=== PATIENT | male | born 1965 ===

== ENCOUNTER 2018-11-18 07:50 | Day surgery (SDC) | payer BC ==
--- OUTSIDE RECORDS SUMMARY | 2018-11-18 07:53 | XMS REPORT ---
:1965 Author Organization eClinicalWorks Care Team Providers Name Role Phone Myles Rosalio Provider Role Unavailable Allergies No Known Allergies Problems Problem Type Condition Code Onset Dates Condition Status Assessment HTN, goal below 130/80 I10 Active Problem HTN, goal below 130/80 I10 Active Problem ED (erectile dysfunction) F52.21 Active Problem Adult BMI 31.0-31.9 kg/sq m Z68.31 Active Problem Controlled type 2 diabetes mellitus E11.8 Active with complication, without long-term current use of insulin Problem Type 2 diabetes mellitus with other E11.29 Active diabetic kidney complication Problem Proteinuria, unspecified R80.9 Active Medications Medication Code Code Instructions Start End Date Status Dosage System Date Amlodipine [facility] 51779144872 5 MG Orally Once Aug 18, Active 1 tablet Besylate a day [address] [facility] 95067407669 100-12.5 MG Jul 29, Active 1 tablet Potassium-HCTZ Orally Once a 2018 day Results No Known Results Summary Purpose eClinicalWorks Submission
--- OUTSIDE RECORDS SUMMARY | 2018-11-18 07:53 | XMS REPORT ---
:1965 Author Organization eClinicalWorks Care Team Providers Name Role Phone Rosalio Bueno Provider Role Unavailable Allergies, Adverse Reactions, Alerts Substance Reaction Event Type N.K.D.A. Info Not Available Non Drug Allergy Problems Problem Type Condition Code Onset Dates Condition Status Assessment Screening for colon cancer Z12.11 Active Assessment Well adult on routine health check Z00.00 Active Assessment Encounter for screening for other Z11.59 Active viral diseases Problem HTN, goal below 130/80 I10 Active Problem ED (erectile dysfunction) F52.21 Active Problem Adult BMI 31.0-31.9 kg/sq m Z68.31 Active Problem Controlled type 2 diabetes mellitus E11.8 Active with complication, without long-term current use of insulin Problem Type 2 diabetes mellitus with other E11.29 Active diabetic kidney complication Problem Proteinuria, unspecified R80.9 Active Assessment Low serum testosterone level R79.89 Active Assessment Adult BMI 31.0-31.9 kg/sq m Z68.31 Active Assessment Mixed hyperlipidemia E78.2 Active Assessment Proteinuria, unspecified R80.9 Active Assessment ED (erectile dysfunction) F52.21 Active Assessment HTN, goal below 130/80 I10 Active Assessment Type 2 diabetes mellitus with other E11.29 Active diabetic kidney complication Assessment Controlled type 2 diabetes mellitus E11.8 Active with complication, without long-term current use of insulin Medications Medication Code Code Instructions Start End Date Status Dosage System Date Metformin HCl [facility] 85061560279 500 MG Orally Active 1 tablet Twice a day with a meal Sildenafil ND 57743192778 100 MG Orally Aug 26, Sep 25, Active 1 tablet Citrate Once a day 2018 2018 as needed Amlodipine ND 86094688209 5 MG Orally Aug 18, Active 1 tablet Besylate Twice a day 2018 Losartan ND 29376994826 100-12.5 MG Active 1 tablet Potassium-HCTZ Orally Once a day Cialis [facility] 53993620239 20 MG Orally Active 1 tablet Results No Known Results Summary Purpose eClinicalWorks Submission
--- OUTSIDE RECORDS SUMMARY | 2018-11-18 07:53 | XMS REPORT ---
:1965 Author Organization eClinicalWorks Care Team Providers Name Role Phone Ron Gutierrez Provider Role Unavailable Allergies No Known Allergies Problems Problem Type Condition Code Onset Dates Condition Status Problem HTN, goal below 130/80 I10 Active Problem ED (erectile dysfunction) F52.21 Active Problem Adult BMI 31.0-31.9 kg/sq m Z68.31 Active Problem Controlled type 2 diabetes mellitus E11.8 Active with complication, without long-term current use of insulin Problem Type 2 diabetes mellitus with other E11.29 Active diabetic kidney complication Problem Proteinuria, unspecified R80.9 Active Medications No Known Medications Results No Known Results Summary Purpose [email or web address] Submission
--- OUTSIDE RECORDS SUMMARY | 2018-11-18 07:53 | XMS REPORT ---
:1965 Author Organization eClinicalWorks Care Team Providers Name Role Phone Myles Rosalio Provider Role Unavailable Allergies, Adverse Reactions, Alerts Substance Reaction Event Type N.K.D.A. Info Not Available Non Drug Allergy Problems Problem Type Condition Code Onset Dates Condition Status Assessment Mixed hyperlipidemia E78.2 Active Assessment HTN, goal below 130/80 I10 Active Assessment Proteinuria, unspecified R80.9 Active Assessment ED (erectile dysfunction) F52.21 Active Assessment Type 2 diabetes mellitus with other E11.29 Active diabetic kidney complication Problem Type 2 diabetes mellitus with other E11.29 Active diabetic kidney complication Problem Proteinuria, unspecified R80.9 Active Problem ED (erectile dysfunction) F52.21 Active Assessment Controlled type 2 diabetes mellitus E11.8 Active with complication, without long-term current use of insulin Problem Controlled type 2 diabetes mellitus E11.8 Active with complication, without long-term current use of insulin Problem HTN, goal below 130/80 I10 Active Medications Medication Code Code Instructions Start End Status Dosage System Date Date Cialis [facility] 84400447901 20 MG Orally Active 1 tablet Losartan [facility] 45191946301 100-12.5 MG Jul 29, Active 1 tablet Potassium-HCTZ Orally Once a 2017 day Metformin HCl [facility] 91106230818 500 MG Orally Active 1 tablet Twice a day with a meal Amlodipine [facility] 01434571892 5-320 MG Orally Inactive 1 tablet Besylate-Valsa Once a day rtan Results No Known Results Summary Purpose eClinicalWorks Submission
--- OUTSIDE RECORDS SUMMARY | 2018-11-18 07:53 | XMS REPORT ---
:1965 Author Organization eClinicalWorks Care Team Providers Name Role Phone Myles Rosalio Provider Role Unavailable Allergies No Known Allergies Problems Problem Type Condition Code Onset Dates Condition Status Assessment HTN, goal below 130/80 I10 Active Assessment Controlled type 2 diabetes mellitus [...] Date Status Dosage System Date Metformin HCl [facility] 93635361894 500 MG Orally Active 1 tablet Twice a day with a meal Losartan ND 37229125571 100-12.5 MG Active 1 tablet Potassium-HCTZ Orally Once a day Amlodipine ND 11654089795 5 MG Orally Aug 18, Active 1 tablet Besylate Twice a day 2018 Results No Known Results Summary Purpose eClinicalWorks Submission
--- OUTSIDE RECORDS SUMMARY | 2018-11-18 07:53 | XMS REPORT ---
:1965 Author Organization eClinicalWorks Care Team Providers Name Role Phone BuenoRosalio Provider Role Unavailable Allergies, Adverse Reactions, Alerts [...] Start End Date Status Dosage System Date Cia [facility] 32851750868 20 MG Orally Active 1 tablet Losartan [facility] 96589778086 100-12.5 MG Jul 29, Active 1 tablet Potassium-HCTZ Orally Once a 2017 day Metformin HCl [facility] 88293176715 500 MG Orally Active 1 tablet Twice a day with a meal Amlodipine ND 49863714776 5 MG Orally Aug 18, Active 1 tablet Besylate Twice a day 2019 Results No Known Results Summary Purpose eClinicalWorks Submission
--- OUTSIDE RECORDS SUMMARY | 2018-11-18 07:54 | XMS REPORT ---
:1965 Author Organization eClinicalWorks Care Team Providers Name Role Phone Ron Gutierrez Provider Role Unavailable Allergies, Adverse Reactions, Alerts Substance Reaction Event Type N.K.D.A. Info Not Available Non Drug Allergy Problems Problem Type Condition Code Onset Dates Condition Status Assessment Encounter for screening colonoscopy Z12.11 Active Problem HTN, goal below 130/80 I10 [...] Start End Date Status Dosage System Date Sildenafil [facility] 82433992802 100 MG Orally Aug 26, Oct 13, Active 1 tablet Citrate Once a day 2018 2018 as needed Amlodipine ND 93457994856 5 MG Orally Aug 18, Active 1 tablet Besylate Twice a day 2018 Metformin HCl ND 04096457758 500 MG Orally Active 1 tablet Twice a day with a meal Losartan ND 91787864067 100-12.5 MG Active 1 tablet Potassium-HCTZ Orally Once a day Results No Known Results Summary Purpose eClinicalWorks Submission
--- OUTSIDE RECORDS SUMMARY | 2018-11-18 07:54 | XMS REPORT ---
:1965 Author Organization eClinicalWorks Care Team Providers Name Role Phone BuenoRosalio Provider Role Unavailable Allergies, Adverse Reactions, Alerts Substance Reaction Event Type N.K.D.A. Info Not Available Non Drug Allergy Problems Problem Type Condition Code Onset Dates Condition Status Assessment Proteinuria, unspecified R80.9 Active Assessment Controlled type 2 diabetes mellitus E11.8 Active with complication, without long-term current use of insulin Assessment HTN, goal below 130/80 I10 Active Assessment Adult BMI 31.0-31.9 kg/sq m Z68.31 Active Assessment ED (erectile dysfunction) F52.21 Active Assessment Type 2 diabetes mellitus with other E11.29 Active diabetic kidney complication Assessment Mixed hyperlipidemia E78.2 Active Problem HTN, goal below 130/80 I10 [...] Start End Status Dosage System Date Date Amlodipine [facility] 32704986220 5 MG Orally Active 1 tablet Besylate Twice a day Metformin HCl [facility] 79796526975 500 MG Orally Active 1 tablet Twice a day with a meal Losartan [facility] 34715524185 100-12.5 MG Active 1 tablet Potassium-HCTZ Orally Once a day Atorvastatin [facility] 49895356110 10 MG Orally October Active 1 tablet Calcium Once a day 2018 Results No Known Results Summary Purpose [employer] Submission
--- OUTSIDE RECORDS SUMMARY | 2018-11-18 07:54 | XMS REPORT ---
:1965 Author Organization eClinicalWorks Care Team Providers Name Role Phone Myles Rosalio Provider Role Unavailable Allergies No Known Allergies Problems Problem Type Condition Code Onset Dates Condition Status Assessment ED (erectile dysfunction) F52.21 Active Problem HTN, goal below 130/80 I10 [...] Start End Status Dosage System Date Date Sildenafil [facility] 09822216951 100 MG Orally Aug 26, Oct 13, Active 1 tablet Citrate Once a day 2018 2018 as needed Cialis [facility] 70315696791 20 MG Orally Sep 13, Inactive 1 tablet Once a day 2018 Results No Known Results Summary Purpose eClinicalWorks Submission
[2018-11-18] MEDS ORDERED: NA CHLORIDE 0.9% 1,000 ML ONE (08:12)
[2018-11-18] MEDS ORDERED: PROPOFOL 200 MG/20 ML VIAL IV ONE (09:19)
[2018-11-18] MEDS ORDERED: LIDOCAINE 1% MPF 5 ML VIAL ONE (09:19)
--- NOTE | 2018-11-18 09:54 | ENDO RPT ---
[address], [address] COLONOSCOPY PROCEDURE REPORT EXAM DATE: 11/18/2018 PATIENT NAME: Mert Raymond MR #: [id number] BIRTHDATE: 1965 ATTENDING: Ron Gutierrez DR STATUS: outpatient [employer]: Marley Driscoll and Martha Schmid RN INDICATIONS: The patient is a 53 yr old Male here for a colonoscopy due to colon cancer screening PROCEDURE PERFORMED: Screening Colonoscopy MEDICATIONS: Per Anesthesia. ESTIMATED BLOOD LOSS: None CONSENT: The patient understands the risks and benefits of the procedure and understands that these risks include, but are not limited to: sedation, allergic reaction, infection, perforation and/or bleeding. Alternative means of evaluation and treatment include, among others: physical exam, x-rays, and/or surgical intervention. The patient elects to proceed with this endoscopic procedure. DESCRIPTION OF PROCEDURE: During intra-op preparation period all mechanical medical equipment was checked for proper function. Hand hygiene and appropriate measures for infection prevention was taken. Procedure, possible complications, alternatives including, but not limited to possibility of bleeding, perforation, tear, infection, sepsis, need for surgery, need for blood transfusion, were explained to the patient. After the risks, benefits and alternatives of the procedure were thoroughly explained, Informed consent was verified, confirmed and timeout was successfully executed by the treatment team. The patient was placed in the left lateral position. A digital rectal exam was performed and revealed internal hemorrhoids. After appropriate level of anesthesia, the scope was passed. The [id number] ([id number]) endoscope was introduced through the anus and advanced to the cecum, which was identified by both the appendix and ileocecal valve. The quality of the prep was good. The instrument was then slowly withdrawn as the colon was fully examined. Scope withdrawal time was 8 minutes. COLON FINDINGS: Mild diverticulosis was noted in the descending colon and sigmoid colon. No bleeding was noted from the diverticulosis. Retroflexed views revealed no abnormalities. The scope was then completely withdrawn from the patient and the procedure terminated. ADVERSE EVENTS: There were no complications. IMPRESSIONS: 1. Mild diverticulosis was noted in the descending colon and sigmoid colon 2. Internal hemorrhoids RECOMMENDATIONS: 1. yearly hemoccult starting in 4 years 2. hemorrhoidal hygiene 3. Stool FIT DNA testing in 4 years RECALL: Return in 10 year(s) for Colonoscopy. Ron Gutierrez DR eSigned: Ron Gutierrez DR 11/18/2018 9:54 AM cc: CPT CODES: ICD9 CODES: PATIENT NAME: Mert Raymodn MR#: [id number]
== END 2018-11-18 10:33 | disposition home or self-care (01) ==
LOC: OR 07:50
PROVIDERS: ATTEND Surgery
PROC: 0DJD8ZZ Inspection of Lower Intestinal Tract, Via Natural or Artificial Opening Endoscopic (ICD-10-PCS; principal; 2018-11-18 09:15)
DX: Z12.11 Encounter for screening for malignant neoplasm of colon (principal); Z83.71 Family history of colonic polyps; K57.30 Diverticulosis of large intestine without perforation or abscess without bleeding; K64.8 Other hemorrhoids; E11.9 Type 2 diabetes mellitus without complications; I10 Essential (primary) hypertension; Z79.84 Long term (current) use of oral hypoglycemic drugs; Z79.899 Other long term (current) drug therapy; Z87.891 Personal history of nicotine dependence
CPT/HCPCS: 82962; J2704; J7030